=== PATIENT | male | born 1990 | race Caucasian/White ===

== ENCOUNTER 2019-02-19 22:09 | Emergency (ER) | payer SELFPAY ==
[~2019-02-19] VITALS: Ht 172.7 cm; Wt 85.7 kg
[2019-02-19 22:10] VITALS: BP 140/90
[2019-02-19] MEDS ORDERED: LORazepam 1 MG TAB PO ONE (22:30)
--- NOTE | 2019-02-19 22:30 | NUR ---
DR. LAURA HOSKINS AT BEDSIDE.
--- NOTE | 2019-02-19 22:35 | NUR ---
SITTING UP IN [facility]. AWAKE, A/O X 4. SKIN PINK, WARM, DRY. BREATHING EVEN, UNLABORED. MILD ANXIETY NOTED; FIDGETING, UNABLE TO HOLD EYE CONTACT. MEDICATED WITH 1 MG PO ATIVAN. WILL REASSESS.
--- NOTE | 2019-02-19 22:40 | NUR ---
EDUCATED PT ON IMPORTANCE OF SEEKING SUPPORT GROUP FOR SUBSTANCE ABUSE. WILL PROVIDE WITH LIST OF RESOURCES.
[2019-02-19 23:03] VITALS: BP 135/76
--- NOTE | 2019-02-19 23:03 | NUR ---
DISCHARGE PAPERS GIVEN TO PT. PT STATES RELIEF. NO C/O ANXIETY. INSTRUCTED TO F/U WITH [facility]. PT VERBALILLIZED UNDERSTANDING OF DC INSTRUCTIONS. ALL QUESTIONS ANSWERED.
== END 2019-02-19 23:03 | disposition home or self-care (01) ==
LOC: MED 22:09
DX: F41.9 Anxiety disorder, unspecified (principal); F15.90 Other stimulant use, unspecified, uncomplicated; F17.290 Nicotine dependence, other tobacco product, uncomplicated; R03.0 Elevated blood-pressure reading, without diagnosis of hypertension; Z71.6 Tobacco abuse counseling
CPT/HCPCS: 99284